=== PATIENT | male | born 1985 | race Caucasian/White ===

== ENCOUNTER 2020-05-19 02:09 | Emergency (ER) | payer SELFPAY ==
[~2020-05-19] VITALS: Ht 182.9 cm; Wt 86.4 kg
[2020-05-19 02:11] VITALS: TEMP 98.1
[2020-05-19] MEDS ORDERED: ATARAX 25MG25 MG/TAB PO (02:55)
[2020-05-19 03:10] VITALS: BP 130/60; PULSE 80
== END 2020-05-19 03:15 | disposition home or self-care (01) ==
LOC: COL.ER 02:09
DX: F41.0 Panic disorder [episodic paroxysmal anxiety] (principal)